=== PATIENT | female | born 1975 | race Caucasian/White ===

== ENCOUNTER 2021-12-25 01:29 | Emergency (ER) | payer MEDICAID ==
[~2021-12-25] VITALS: Ht 160 cm; Wt 145.1 kg
[2021-12-25] MEDS ORDERED: MORPHINE SULFATE 4 MG/ML CPJ (NOT FOR IM USE) IV STA (02:26)
[2021-12-25] MEDS ORDERED: ONDANSETRON HCL 4MG/2ML INJ IV STA (02:26)
[2021-12-25] MEDS ORDERED: IBUP-2029 MT (03:55)
[2021-12-25] MEDS ORDERED: BACL20TA MT (03:55)
[2021-12-25 04:50] VITALS: BP 165/95
== END 2021-12-25 04:55 | disposition home or self-care (01) ==
LOC: ER 02:05
DX: S83.8X1A Sprain of other specified parts of right knee, initial encounter (principal); X58.XXXA Exposure to other specified factors, initial encounter; Y93.89 Activity, other specified; Y92.89 Other specified places as the place of occurrence of the external cause; Y99.8 Other external cause status; I10 Essential (primary) hypertension
CPT/HCPCS: 73560; 93005; 96374; 96375; 99284; J2270; J2405; L1830